=== PATIENT | female | born 1960 | race Caucasian/White ===

== ENCOUNTER 2018-08-06 13:56 | Emergency (ER) | payer MEDICARE, OTHER ==
[~2018-08-06] VITALS: Ht 172.7 cm; Wt 85.0 kg
[~2018-08-06 13:56] MED LIST: ALPR1TAB6 PO; ASPI-496 PO; ATOR10TA9 PO; GABA-827 PO; HYDR-3245 PO; LIDO35.46 TP; OMEP40CA6 PO; PNV11TAB5 PO
[2018-08-06 14:01] VITALS: BP 122/78
== END 2018-08-06 15:04 | disposition home or self-care (01) ==
LOC: ED 14:50
DX: S33.5XXA Sprain of ligaments of lumbar spine, initial encounter (principal); S43.401A Unspecified sprain of right shoulder joint, initial encounter; F17.200 Nicotine dependence, unspecified, uncomplicated; V49.59XA Passenger injured in collision with other motor vehicles in traffic accident, initial encounter; Y93.89 Activity, other specified; Y92.410 Unspecified street and highway as the place of occurrence of the external cause; Y99.8 Other external cause status
CPT/HCPCS: 72050; 72110; 99283

== ENCOUNTER 2019-09-26 07:10 | Outpatient (CLI) | payer MEDICARE ==
[~2019-09-26 07:10] MED LIST changes: +OMEP40CA42 PO; -OMEP40CA6 PO
== END 2019-09-26 23:59 | disposition home or self-care (01) ==
LOC: CFH 07:10
PROVIDERS: ATTEND Family Medicine
DX: N60.01 Solitary cyst of right breast (principal); N63.15 Unspecified lump in the right breast, overlapping quadrants
CPT/HCPCS: 76642; 77066; G0279

== ENCOUNTER 2020-09-12 01:54 | Observation (INO) | payer MEDICARE ==
[~2020-09-12] VITALS: Ht 170.2 cm; Wt 90.8 kg
[~2020-09-12 01:54] MED LIST changes: +ALPR-585 PO; -ALPR1TAB6 PO; -HYDR-3245 PO; +HYDR1TAB53 PO; -OMEP40CA42 PO; +OMEP40CA8 PO
--- NOTE | 2020-09-12 02:06 | NUR ---
EKG DONE IN TRIAGE.
--- NOTE | 2020-09-12 02:12 | NUR ---
PT CAME INTO ED THIS EVENING DUE TO CHEST PAIN THAT BEGAN TONIGHT WHILE WATCHING A MOVIE WITH HER GRANDSON. PT STATES THE PAIN IS IN HER STERNAL AREA, RADIATES ACROSS CHEST AND TO BACK BILATERALLY. PULSES 2+. NO LOWER EXTREMITY EDEMA NOTED. PT NAD, RESTING ON GURNEY, AT BS. PLACED ON SPO2/BP/ECG MONITORING AT THIS TIME. PROVIDED WARM BLANKETS FOR COMFORT, BED IN LOWEST, RAILS ENGAGED, CALL LIGHT ON LAP, FILEMON MADISON MD AT BS FOR EVAL AND POC
[2020-09-12] MEDS ORDERED: MORPHINE SULFATE 4 MG/ML, 1ML ONE (02:26)
[2020-09-12] MEDS ORDERED: ONDANSETRON 2MG/ML, 2ML ONE (02:26)
[2020-09-12] MEDS ORDERED: ASPIRIN 81 MG TABLET CHEW ONE (02:26)
[2020-09-12] MEDS ORDERED: ASPIRIN 81 MG TABLET CHEW PO ONE (02:30)
[2020-09-12] MEDS ORDERED: MORPHINE SULFATE 4 MG/ML, 1ML IVPush PRN (02:30)
--- NOTE | 2020-09-12 02:45 | NUR ---
PT MEDICATED PER MAR FOR PAIN. LABS DRAWN AND SENT, RAD SENT. PT NAD, RESTING ON GURNEY, VSS, BED IN LOWEST, RAILS ENGAGED, CALL LIGHT ON LAP. WCTM.
[2020-09-12 02:51] LABS: BASOPHILS % (AUTO) 1 % (0-1); EOSINOPHILS % (AUTO) 1 % (1-7); LYMPHOCYTES % (AUTO) 21 % (22-44); MEAN CORPUSCULAR HEMOGLOBIN 31.9 pg (27.0-34.8); MEAN CORPUSCULAR HGB CONC 34.1 g/dL (32.4-35.8); MEAN PLATELET VOLUME 7.9 fL (7.4-10.4); MONOCYTES % (AUTO) 6 % (2-9); NEUTROPHILS % (AUTO) 71 % (42-75); PLATELET COUNT 239 x10^3/uL (130-400); RED BLOOD COUNT 4.31 x10^6/uL (3.82-5.3)
[2020-09-12] MEDS ORDERED: ONDANSETRON 2MG/ML, 2ML IVPush ONE (03:00)
[2020-09-12 03:02] LABS: ALANINE AMINOTRANSFERASE 40 U/L (12-78); ALBUMIN 3.5 g/dL (3.4-5.0); ANION GAP 7 mmol/L (5-15); CALCIUM 8.6 mg/dL (8.5-10.1); CHLORIDE 110 mmol/L (98-107); CREATININE 0.78 mg/dL (0.55-1.02)
[2020-09-12 03:07] LABS: ALKALINE PHOSPHATASE 106 U/L (45-117); BILIRUBIN,TOTAL 0.3 mg/dL (0.2-1.0); TOTAL PROTEIN 7.1 g/dL (6.4-8.2); TROPONIN I < 0.015 ng/mL (0.000-0.045)
[2020-09-12] MEDS ORDERED: KETOROLAC 30 MG/1 ML ONE (03:35)
[2020-09-12] MEDS ORDERED: OXYcodone IR 5MG TABLET PO PRN (04:00)
[2020-09-12] MEDS ORDERED: BISACODYL 10 MG SUPP PR PRN (04:00)
[2020-09-12] MEDS ORDERED: ONDANSETRON ODT 4 MG PO PRN (04:00)
[2020-09-12] MEDS ORDERED: ACETAMINOPHEN 325 MG TABLET PO PRN (04:00)
[2020-09-12] MEDS ORDERED: KETOROLAC 30 MG/1 ML IVPush ONE ×2 (04:00)
[2020-09-12] MEDS ORDERED: DOCUSATE 100 MG CAPSULE PO PRN (04:00)
[2020-09-12] MEDS ORDERED: ONDANSETRON 2MG/ML, 2ML IVPush PRN (04:00)
[2020-09-12] MEDS ORDERED: NITROGLYCERIN 0.4 MG BOTTLE (25 TABS) SL PRN (04:00)
[2020-09-12] MEDS ORDERED: PROMETHAZINE 25 MG/ML, 1ML IM PRN (04:00)
[2020-09-12] MEDS ORDERED: hydrALAzine 20 MG/ML, 1ML IVPush PRN (04:00)
[2020-09-12] MEDS ORDERED: POLYETHYLENE GLYCOL 17 GM PACKET PO PRN (04:00)
--- NOTE | 2020-09-12 04:01 | NUR ---
PT MEDICATED PER TODD PARIKH, RESTING ON GURNEY, TO BE ADMITTED, NO CHANGE IN CONDITION, SO AT BS, WCTM.
[2020-09-12] MEDS ORDERED: HEPARIN 5,000 UNITS/ML, 1ML ONE (04:34)
[2020-09-12] MEDS: HEPARIN 5,000 UNITS/ML, 1ML SQ SCH ×2 (04:38→12:25)
[2020-09-12] MEDS: SODIUM CHLORIDE 0.9% 1,000 ML IV SCH ×2 (04:38→12:25)
--- NOTE | 2020-09-12 04:40 | NUR ---
PT MEDICATED PER MAR, AMBULATED TO RESTROOM WITH A SMOOTH AND STEADY GAIT. NAD, DENIES ADDITIONAL QUESTIONS OR NEEDS AT THIS TIME. WCTM. WAITING FOR CARD TELE BED.
--- NOTE | 2020-09-12 04:59 | NUR ---
REPORT CALLED TO FLOOR RNNAVJOT. PT CARE TO BE TRANSFERRED ON ARRIVAL TO THE FLOOR
[2020-09-12 05:12] VITALS: BP 99/63
[2020-09-12] MEDS ORDERED: ASPIRIN 325 MG TABLET EC PO SCH (06:00)
[2020-09-12 06:31] LABS: CHOLESTEROL, TOTAL 209 mg/dL (140-239); TRIGLYCERIDES 114 mg/dL (50-200); VLDL CHOLESTEROL 23 mg/dL (0-25)
[2020-09-12 06:41] LABS: CHOL/HDL RATIO 3.4; FREE T4 (FREE THYROXINE) 0.88 ng/dL (0.76-1.46); HDL CHOL % 30 % (28-40); HDL CHOLESTEROL (DIRECT) 62 mg/dL (40-60); LDL CHOLESTEROL,CALCULATED 124 mg/dL (54-169); TROPONIN I < 0.015 ng/mL (0.000-0.045)
[2020-09-12 07:15] VITALS: BP 92/58
[2020-09-12] MEDS ORDERED: REGADENOSON 0.4 MG/5 ML SYRINGE ONE (08:22)
[2020-09-12 14:39] VITALS: BP 99/69
[2020-09-12] MEDS ORDERED: ATOR40TA PO (15:16)
== END 2020-09-12 17:44 | disposition home or self-care (01) ==
LOC: ED 02:45 → INTOOBSV 04:05 → EDIP 04:05 → 5SO 05:04
PROVIDERS: ADMIT Internal Medicine; ATTEND Internal Medicine
DX: R07.89 Other chest pain (principal); R00.1 Bradycardia, unspecified; F17.200 Nicotine dependence, unspecified, uncomplicated; M79.7 Fibromyalgia; K21.9 Gastro-esophageal reflux disease without esophagitis; E78.5 Hyperlipidemia, unspecified; F13.20 Sedative, hypnotic or anxiolytic dependence, uncomplicated; Z92.3 Personal history of irradiation; Z86.73 Personal history of transient ischemic attack (TIA), and cerebral infarction without residual deficits; Z85.3 Personal history of malignant neoplasm of breast; Z79.899 Other long term (current) drug therapy
CPT/HCPCS: 36415; 71045; 78452; 80053; 80061; 83036; 83690; 83735; 83880; 84100; 84439; 84443; 84484; 85025; 85379; 93005; 93017; 96361; 96372; 96374; 96375; 99285; A9502; C9898; G0378; J1644; J1885; J2270; J2405; J2785; J7030